=== PATIENT | female | born 1960 | race Caucasian/White ===

== ENCOUNTER 2016-06-06 12:14 | Inpatient (IN) | payer MEDICAID ==
[2016-06-06 12:20] VITALS: BMI 25.7
[2016-06-06] MEDS ORDERED: Sodium Chloride 0.9% 1,000 ML IV STA (12:38)
[2016-06-06 13:11] LABS: BASO % 0.2 % (0.0-2.0); EOS # 0.1 K/uL (0.0-0.7); EOS % 1.2 % (0.0-4.0); HEMATOCRIT 40.8 % (34.0-47.0); LYMPH # 4.1 K/uL (1.0-4.3); LYMPH % 40.5 % (20.0-40.0); MEAN CELL VOLUME 85.6 fL (81.0-99.0); MEAN CORPUSCULAR HEMOGLOBIN 27.9 pg (27.0-31.0); MEAN CORPUSCULAR HGB CONC 32.6 g/dL (33.0-37.0); MONO # 0.8 K/uL (0.0-0.8); MONO % 7.4 % (0.0-10.0); NRBC % 0.1 % (0.0-2.0); RED CELL DISTRIBUTION WIDTH 12.8 % (11.5-14.5); WHITE BLOOD COUNT 10.2 K/uL (4.8-10.8)
[2016-06-06 13:26] LABS: RBC URINE < 1 /hpf (0-3); URINE BILIRUBIN NEGATIVE (NEGATIVE); URINE BLOOD NEGATIVE (NEGATIVE); URINE COLOR Yellow (YELLOW); URINE GLUCOSE (UA) 3+ mg/dL (Normal); URINE KETONE NEGATIVE (NEGATIVE); URINE LEUKOCYTE ESTERASE NEG Leu/uL (Negative); URINE PROTEIN 1+ mg/dL (NEGATIVE); URINE UROBILINOGEN NORMAL mg/dL (0.2-1.0); WBC URINE < 1 /hpf (0-5)
[2016-06-06 13:27] LABS: CHLORIDE 93 mmol/L (98-107); POTASSIUM 3.5 mmol/L (3.6-5.2); SODIUM 138 mmol/L (132-148)
[2016-06-06 13:29] LABS: BILIRUBIN,TOTAL 0.5 mg/dL (0.2-1.3); CARBON DIOXIDE 27 mmol/L (22-30); GFR AFRICAN-AMERICAN > 60
[2016-06-06 13:30] LABS: ALKALINE PHOSPHATASE 85 U/L (38-126); ALT/SGPT 16 U/L (9-52); AST/SGOT 17 U/L (14-36); BLOOD UREA NITROGEN 14 mg/dL (7-17); CALCIUM 9.1 mg/dl (8.6-10.4); GLUCOSE,RANDOM 307 mg/dL (65-105); TOTAL PROTEIN 8.6 g/dL (6.3-8.3)
[2016-06-06] MEDS ORDERED: Piperacillin/Tazobact 3.375 gm 100 ML IV STA (14:46)
[2016-06-06] MEDS ORDERED: Piperacillin/Tazobact 3.375 gm 100 ML IVPB ONE (15:10)
--- NOTE | 2016-06-06 16:28 | C.PDOC ---
History Of Present Illness Patient is a 55 y/o female that presents to the ED for evaluation of right upper eyelid pain and swelling for the last 3 days that is progressively getting worse and since yesterday spread to the periorbital area. Pt also reports heaviness and paresthesia to BL legs, right more than left. Of note, pt walks with a cane. Blood pressure was found to be elevated at Triage. Pt notes taking Metropolol 25 mg, that was prescribed by a ER provider in [place]. Pt denies having a PMD. Otherwise, pt denies any shortness of breath, chest pain , palpitations, headache, weakness, numbness, fever, vision change, or any other associated symptoms at this time. Time Seen by Provider: 06/06/16 12:35 Chief Complaint (Nursing): Eye Problem History Per: Patient History/Exam Limitations: no limitations Onset/Duration Of Symptoms: Days (3) Current Symptoms Are (Timing): Still Present Injury To Eye?: No Quality: "Pain" Associated Symptoms: Pain, Swelling Recent travel outside of the [place]: No Additional History Per: Patient Past Medical History Reviewed: Historical Data, Nursing Documentation, Vital Signs Vital Signs: Last Vital Signs Temp 98.1 F 06/06/16 12:19 Pulse 108 H 06/06/16 12:19 Resp 18 06/06/16 12:19 BP 156/88 H 06/06/16 14:46 Pulse Ox 100 06/06/16 17:11 - Medical History PMH: HTN Family History: States: Unknown Family Hx - Social History Hx Alcohol Use: No Hx Substance Use: No - Immunization History Hx Tetanus Toxoid Vaccination: No Hx Influenza Vaccination: No Hx Pneumococcal Vaccination: No Review Of Systems Except As Marked, All Systems Reviewed And Found Negative. Constitutional: Negative for: Fever, Chills Eyes: Positive for: Pain, Eyelid Inflammation. Negative for: Vision Change, Redness Cardiovascular: Negative for: Chest Pain, Palpitations, Edema, Light Headedness Respiratory: Negative for: Cough, Shortness of Breath Gastrointestinal: Negative for: Nausea, Vomiting, Abdominal Pain Neurological: Negative for: Headache Physical Exam - Physical Exam Appears: Non-toxic, No Acute Distress Skin: Normal Color, Warm, Dry Head: Atraumatic, Normacephalic Eye(s): bilateral: EOMI, Scleral Icterus, right: Eyelid Inflammation, Other ( erythema, and swelling to right upper eyelid, mild swelling to inferior periorbital region, upper eyelid with the inner stye.) Ear(s): Bilateral: Normal Neck: Normal ROM, Supple Chest: Symmetrical Cardiovascular: Rhythm Regular Respiratory: Normal Breath Sounds, No Rales, No Rhonchi, No Wheezing Back: Paraspinal Tenderness (lumbar) Extremity: Normal ROM, Calf Tenderness (bilateral), Capillary Refill (< 2 sec.) , No Deformity, No Swelling Extremity: Bilateral: Atraumatic, Normal Color And Temperature Pulses: Left Dorsalis Pedis: Normal, Right Dorsalis Pedis: Normal Neurological/Psych: Oriented x3, Normal Speech, Normal Cognition, Normal Motor, Normal Sensation (decreased sensation in b/l feet, ) ED Course And Treatment - Laboratory Results Result Diagrams: 06/06/16 13:08 06/06/16 13:08 O2 Sat by Pulse Oximetry: 100 (on RA) Pulse Ox Interpretation: Normal - Other Rad LS spine x-ray X-Ray: Viewed By Me, Read By Radiologist Interpretation: FINDINGS: BONES: Normal alignment. No listhesis. No fracture. Mild dextroscoliosis. DISC SPACES: Unremarkable. OTHER FINDINGS: None. IMPRESSION: No fracture/ dislocation. Mild dextroscoliosis. Progress Note: Labs, venous duplex scan, LS spine x-ray ordered and reviewed. Patient was treated with IV fluids, Labetalol PO, and Zosyn IV. On reassessment , blood pressure decreased. Duplex was negative for DVT. Blood work was significant for elevated blood Glucose level which was new for the patient. Patient is resting comfortably, no significant distress. Case was d/w who accepted patient to his service. Disposition - Disposition Disposition: HOSPITALIZED Disposition Time: 16:20 Condition: FAIR - Clinical Impression Clinical Impression: Diabetes mellitus, new onset, Uncontrolled hypertension, Periorbital cellulitis of right eye - PA / RESOLUTION EXPERT / Resident Statement MD/DO has reviewed & agrees with the documentation as recorded. - Scribe Statement The provider has reviewed the documentation as recorded by the Mo Jean All medical record entries made by the Fernandoibsonia were at my direction and personally dictated by me. I have reviewed the chart and agree that the record accurately reflects my personal performance of the history, physical exam, medical decision making, and the department course for this patient. I have also personally directed, reviewed, and agree with the discharge instructions and disposition. Decision To Admit - Pt Status Changed To: Hospital Disposition Of: Inpatient - Admit Certification Admit to Inpatient:: After my assessment, the patient will require hospitalization for at least two midnights. This is because of the severity of symptoms shown, intensity of services needed, and/or the medical risk in this patient being treated as an outpatient. - InPatient: Physician Admission Certification: I certify that this patient requires 2 or more midnights of care for the following reason:: Pt will need IV Abx for more than 2 days. - . Bed Request Type: Regular Admitting Physician: Scotty Christina Patient Diagnosis: Diabetes mellitus, new onset, Uncontrolled hypertension, Periorbital cellulitis of right eye
--- NOTE | 2016-06-06 16:45 | RAD ---
PROCEDURE: Radiographs of the Lumbar Spine. HISTORY: LE pain COMPARISON: No prior. FINDINGS: BONES: Normal alignment. No listhesis. No fracture. Mild dextroscoliosis. DISC SPACES: Unremarkable. OTHER FINDINGS: None. IMPRESSION: No fracture/ dislocation. Mild dextroscoliosis.
[2016-06-06] MEDS ORDERED: Oxycodone/Acetaminophen 5/325 mg Tab PO PRN (17:02)
--- NOTE | 2016-06-06 17:16 | CP.PCM.HP ---
History of Present Illness - History of Present Illness History of Present Illness: 55 year old admitted with uncontrolled DM, HTN, Sty with cellulitis Present on Admission - Present on Admission Any Indicators Present on Admission: No Review of Systems - Constitutional Constitutional: Weakness - EENT Eyes: absent: Discharge Ears: absent: Ear Discharge Nose/Mouth/Throat: absent: Epistaxis - Cardiovascular Cardiovascular: Chest Pain. absent: Acrocyanosis, Diaphoresis, Palpitations, Syncope - Respiratory Respiratory: absent: Cough, Dyspnea, Hemoptysis - Gastrointestinal Gastrointestinal: absent: Abdominal Pain, Diarrhea, Hematochezia, Vomiting - Genitourinary Genitourinary: Urinary Frequency - Reproductive: Female Reproductive:Female: Post Menopausal Past Patient History - Past Social History Smoking Status: Never Smoked - CARDIAC Hx Hypertension: Yes - PSYCHIATRIC Hx Substance Use: No Meds Allergies/Adverse Reactions: Allergies Allergy/AdvReac Type Severity Reaction Status Date / Time No Known Allergies Allergy Unverified 06/06/16 12:19 Physical Exam - Constitutional Appears: Non-toxic - Head Exam Head Exam: ATRAUMATIC - Eye Exam Eye Exam: EOMI, Periorbital swelling Additional comments: sty R upper - ENT Exam ENT Exam: Mucous Membranes Moist - Neck Exam Neck exam: Negative for: Lymphadenopathy, Thyromegaly - Respiratory Exam Respiratory Exam: Clear to Auscultation Bilateral. absent: Rales - Cardiovascular Exam Cardiovascular Exam: REGULAR RHYTHM - GI/Abdominal Exam GI & Abdominal Exam: Normal Bowel Sounds. absent: Mass, Organomegaly - Rectal Exam Rectal Exam: Deferred - Extremities Exam Extremities exam: Positive for: normal capillary refill. Negative for: calf tenderness - Neurological Exam Neurological exam: Alert, Oriented x3 - Psychiatric Exam Psychiatric exam: Normal Mood - Skin Skin Exam: Dry Results - Vital Signs Recent Vital Signs: Last Vital Signs Temp 98.1 F 06/06/16 12:19 Pulse 108 H 06/06/16 12:19 Resp 18 06/06/16 12:19 BP 156/88 H 06/06/16 14:46 Pulse Ox 100 06/06/16 17:11 - Labs Result Diagrams: 06/07/16 06:08 06/07/16 06:08 Assessment & Plan (1) Infection of orbit Status: Acute (2) Diabetes 1.5, managed as type 2 Status: Acute (3) Hypertension Status: Acute Decision To Admit - Pt Status Changed To: Hospital Disposition Of: Inpatient - Admit Certification Admit to Inpatient:: After my assessment, the patient will require hospitalization for at least two midnights. This is because of the severity of symptoms shown, intensity of services needed, and/or the medical risk in this patient being treated as an outpatient. - InPatient: Physician Admission Certification:: yes - . Bed Request Type: Regular
[2016-06-06] MEDS ORDERED: Piperacill/Tazo 3.375gm in Dex 50 ML IVPB SCH ×2 (17:30→21:30)
[2016-06-06] MEDS ORDERED: Iodixanol 320 MG/ML 100 ML BOTTLE IV ONE (18:13)
--- NOTE | 2016-06-06 19:15 | CT ---
EXAM: CT Maxillofacial With Intravenous Contrast. CLINICAL HISTORY: 55 years old, female; Pain; Eye pain; Right; Additional info: Infection TECHNIQUE: Axial computed tomography images of the face with intravenous contrast. This CT exam was performed using one or more of the following dose reduction techniques: automated exposure control, adjustment of the mA and/or kV according to patient size, and/or use of iterative reconstruction technique. Coronal and sagittal reformatted images were created and reviewed. CONTRAST: 100 mL of [id number] administered intravenously. EXAM DATE/TIME: 06/06/2016 5:12 PM COMPARISON: There are no prior studies for comparison. FINDINGS: Orbits: There is right periorbital soft tissue swelling. There is edema in the right cheek inferior to the orbit. Right globe is intact. Retrobulbar structures are unremarkable. There is no right orbital cellulitis. Left orbital contents are unremarkable. Sinuses: There is no acute sinusitis. Bony structures: Facial bones are intact. There are degenerative changes in the visualized cervical spine. Artifact:Streak artifact from dental fillings degrades image quality. Brain: No acute abnormalities are seen in visualized portion of the brain. Ears and mastoids: Middle ears and mastoids are unremarkable Vascular: Vascular structures are normal in course and caliber. Deep soft tissues: There are no facial masses. Airway: Airway is unremarkable. IMPRESSION: Right izzy-orbital and cheek soft tissue swelling suggesting preseptal cellulitis/facial cellulitis, no orbital cellulitis Additional findings as described above.
[2016-06-06] MEDS: (Novolin R) Insulin Human Regular 100 units/ml vial SC SCH (22:26)
[2016-06-07] MEDS: Piperacill/Tazo 3.375gm in Dex 50 ML IVPB SCH ×5 (00:16→23:59)
[2016-06-07] MEDS: Tobramycin 0.3% OPHT SOLN OU SCH ×7 (01:15→21:47)
[2016-06-07 01:36] VITALS: RESP 20
[2016-06-07 06:18] LABS: BASO % 0.3 % (0.0-2.0); EOS # 0.1 K/uL (0.0-0.7); EOS % 1.5 % (0.0-4.0); HEMATOCRIT 36.6 % (34.0-47.0); LYMPH # 2.6 K/uL (1.0-4.3); LYMPH % 30.8 % (20.0-40.0); MEAN CELL VOLUME 85.5 fL (81.0-99.0); MEAN CORPUSCULAR HEMOGLOBIN 28.5 pg (27.0-31.0); MEAN CORPUSCULAR HGB CONC 33.3 g/dL (33.0-37.0); MEAN PLATELET VOLUME 8.2 fL (7.2-11.7); MONO # 0.7 K/uL (0.0-0.8); MONO % 8.3 % (0.0-10.0); WHITE BLOOD COUNT 8.3 K/uL (4.8-10.8)
[2016-06-07 06:26] LABS: CHLORIDE 98 mmol/L (98-107)
[2016-06-07 06:27] LABS: SODIUM 140 mmol/L (132-148)
[2016-06-07 06:29] LABS: ALB/GLOB RATIO 1.2 (1.0-2.1); ALKALINE PHOSPHATASE 69 U/L (38-126); AST/SGOT 17 U/L (14-36); BILIRUBIN,TOTAL 0.9 mg/dL (0.2-1.3); BLOOD UREA NITROGEN 17 mg/dL (7-17); CARBON DIOXIDE 27 mmol/L (22-30); CHOLESTEROL 211 mg/dL (0-199); GFR AFRICAN-AMERICAN > 60; TOTAL PROTEIN 7.2 g/dL (6.3-8.3)
[2016-06-07 06:30] LABS: ALT/SGPT 21 U/L (9-52); CALCIUM 8.8 mg/dl (8.6-10.4); GLUCOSE,RANDOM 207 mg/dL (65-105)
[2016-06-07] MEDS: (Novolin R) Insulin Human Regular 100 units/ml vial SC SCH ×4 (08:46→21:42)
[2016-06-07] MEDS: Metoprolol Succinate 25 mg XL Tab PO SCH (09:37)
[2016-06-07] MEDS: Enoxaparin 40 mg Syringe SC SCH (09:37)
--- NOTE | 2016-06-07 23:57 | CP.PCM.PN ---
Subjective - Date & Time of Evaluation Date of Evaluation: 06/07/16 Time of Evaluation: 14:00 - Subjective Subjective: improved clinically, neg culture so far, f/u with opth Objective - Vital Signs/Intake and Output Vital Signs (last 24 hours): Temp Pulse Resp BP Pulse Ox 98.3 F 100 H 20 131/83 100 06/07/16 17:00 06/07/16 17:00 06/07/16 17:00 06/07/16 17:00 06/07/16 17:00 Intake and Output: 06/07/16 06/08/16 18:59 06:59 Intake Total 500 260 Output Total 1 Balance 500 259 - Medications Medications: Current Medications Acetaminophen (Tylenol 325mg Tab) 650 mg PO Q6 PRN PRN Reason: Fever >100.4 F Docusate Sodium (Colace) 100 mg PO BID [facility] Last Admin: 06/07/16 18:04 Dose: 100 mg Enoxaparin Sodium (Lovenox) 40 mg SC DAILY [facility] Last Admin: 06/07/16 09:37 Dose: 40 mg Piperacillin Sod/Tazobactam Sod (Zosyn 3.375 Gm Iv Premix) 50 mls @ 100 mls/hr IVPB Q6H [facility] Last Admin: 06/07/16 18:05 Dose: 100 mls/hr Insulin Human Regular (Novolin R) 0 unit SC ACHS [facility] PRN Reason: Protocol Last Admin: 06/07/16 21:42 Dose: Not Given Lisinopril (Zestril) 20 mg PO DAILY [facility] Last Admin: 06/07/16 09:37 Dose: 20 mg Metformin HCl (Glucophage) 500 mg PO BIDCC [facility] Last Admin: 06/07/16 17:22 Dose: Not Given Metoprolol Succinate (Toprol Xl) 25 mg PO DAILY [facility] Last Admin: 06/07/16 09:37 Dose: 25 mg Ondansetron HCl (Zofran Inj) 4 mg IVP Q6 PRN PRN Reason: Nausea/Vomiting Oxycodone/Acetaminophen (Percocet 5/325 Mg Tab) 1 tab PO Q4 PRN PRN Reason: Pain, moderate (4-7) Stop: 06/09/16 17:03 Sucralfate (Carafate Tab) 1 gm PO BID [facility] Last Admin: 06/07/16 18:04 Dose: 1 gm Tobramycin Sulfate (Tobrex 0.3% Ophth Soln) 1 drop OU Q4H [facility] Last Admin: 06/07/16 21:47 Dose: 1 drop - Labs Labs: 06/07/16 06:08 06/07/16 06:08 PT 11.7 SECONDS (9.7-12.2) 06/06/16 13:08 INR 1.0 06/06/16 13:08 APTT 29 SECONDS (21-34) 06/06/16 13:08 - Constitutional Appears: Non-toxic - Head Exam Head Exam: ATRAUMATIC - Eye Exam Eye Exam: EOMI - ENT Exam ENT Exam: Mucous Membranes Moist - Neck Exam Neck Exam: absent: Lymphadenopathy, Thyromegaly - Respiratory Exam Respiratory Exam: Clear to Ausculation Bilateral. absent: Rales - Cardiovascular Exam Cardiovascular Exam: REGULAR RHYTHM. absent: Murmur - GI/Abdominal Exam GI & Abdominal Exam: Normal Bowel Sounds. absent: Organomegaly - Rectal Exam Rectal Exam: Deferred - Extremities Exam Extremities Exam: Normal Capillary Refill. absent: Calf Tenderness - Neurological Exam Neurological Exam: Alert, Oriented x3 - Psychiatric Exam Psychiatric exam: Normal Mood - Skin Skin Exam: Dry Assessment and Plan (1) Infection of orbit Status: Acute (2) Diabetes 1.5, managed as type 2 Status: Acute (3) Hypertension Status: Acute
[2016-06-08] MEDS: Tobramycin 0.3% OPHT SOLN OU SCH ×4 (00:15→12:19)
[2016-06-08] MEDS: Piperacill/Tazo 3.375gm in Dex 50 ML IVPB SCH ×2 (05:48→12:31)
[2016-06-08] MEDS: (Novolin R) Insulin Human Regular 100 units/ml vial SC SCH ×2 (08:20→12:17)
[2016-06-08] MEDS: Metoprolol Succinate 25 mg XL Tab PO SCH (10:35)
[2016-06-08] MEDS: Enoxaparin 40 mg Syringe SC SCH (10:35)
--- NOTE | 2016-06-08 12:06 | CP.PCM.PN ---
Subjective - Date & Time of Evaluation Date of Evaluation: 06/08/16 Time of Evaluation: 12:00 - Subjective Subjective: Hemoglobin A1c 11 lipids mildly elevated, improved clinically, follow-up with ophthalmology Objective - Vital Signs/Intake and Output Vital Signs (last 24 hours): Temp Pulse Resp BP Pulse Ox 97.8 F 89 20 149/90 98 06/08/16 08:20 06/08/16 08:20 06/08/16 08:20 06/08/16 08:20 06/08/16 08:20 Intake and Output: 06/08/16 06/08/16 06:59 18:59 Intake Total 260 240 Output Total 1 Balance 259 240 - Medications Medications: Current Medications Acetaminophen (Tylenol 325mg Tab) 650 mg PO Q6 PRN PRN Reason: Fever >100.4 F Docusate Sodium (Colace) 100 mg PO BID [facility] Last Admin: 06/08/16 10:35 Dose: 100 mg Enoxaparin Sodium (Lovenox) 40 mg SC DAILY [facility] Last Admin: 06/08/16 10:35 Dose: 40 mg Piperacillin Sod/Tazobactam Sod (Zosyn 3.375 Gm Iv Premix) 50 mls @ 100 mls/hr IVPB Q6H [facility] Last Admin: 06/08/16 05:48 Dose: 100 mls/hr Insulin Human Regular (Novolin R) 0 unit SC ACHS [facility] PRN Reason: Protocol Last Admin: 06/08/16 08:20 Dose: 2 unit Lisinopril (Zestril) 20 mg PO DAILY [facility] Last Admin: 06/08/16 10:35 Dose: 20 mg [facility] Last Admin: 06/07/16 17:22 Dose: Not Given Metoprolol Succinate (Toprol Xl) 25 mg PO DAILY [facility] Last Admin: 06/08/16 10:35 Dose: 25 mg Ondansetron HCl (Zofran Inj) 4 mg IVP Q6 PRN PRN Reason: Nausea/Vomiting Oxycodone/Acetaminophen (Percocet 5/325 Mg Tab) 1 tab PO Q4 PRN PRN Reason: Pain, moderate (4-7) Stop: 06/09/16 17:03 Sucralfate (Carafate Tab) 1 gm PO BID [facility] Last Admin: 06/08/16 10:35 Dose: 1 gm Tobramycin Sulfate (Tobrex 0.3% Ophth Soln) 1 drop OU Q4H [facility] Last Admin: 06/08/16 10:37 Dose: 1 drop - Labs Labs: 06/07/16 06:08 06/07/16 06:08 PT 11.7 SECONDS (9.7-12.2) 06/06/16 13:08 INR 1.0 06/06/16 13:08 APTT 29 SECONDS (21-34) 06/06/16 13:08 - Constitutional Appears: Non-toxic - Head Exam Head Exam: ATRAUMATIC - Eye Exam Eye Exam: EOMI - ENT Exam ENT Exam: Mucous Membranes Moist - Neck Exam Neck Exam: absent: Lymphadenopathy, Thyromegaly - Respiratory Exam Respiratory Exam: Clear to Ausculation Bilateral. absent: Rales - Cardiovascular Exam Cardiovascular Exam: REGULAR RHYTHM, Murmur - GI/Abdominal Exam GI & Abdominal Exam: Normal Bowel Sounds. absent: Organomegaly - Rectal Exam Rectal Exam: Deferred - Extremities Exam Extremities Exam: Normal Capillary Refill. absent: Calf Tenderness - Neurological Exam Neurological Exam: Alert, Oriented x3 - Psychiatric Exam Psychiatric exam: Normal Mood - Skin Skin Exam: Dry Assessment and Plan (1) Infection of orbit Status: Acute (2) Diabetes 1.5, managed as type 2 Status: Acute (3) Hypertension Status: Acute
--- NOTE | 2016-06-08 16:38 | VASCLAB ---
PROCEDURE: Lower Extremity Venous Duplex Exam. HISTORY: LE heaviness/pain suspected DVT PRIORS: None. TECHNIQUE: Bilateral common femoral, femoral, popliteal and posterior tibial, peroneal and great saphenous veins were evaluated. Flow was assessed with color Doppler, compressibility, assessment of phasic flow and augmentation response. Report prepared by John Renteria, RVT FINDINGS: RIGHT: 1. Common Femoral Vein: 1.1. Compressibility - Fully compressible: Thrombus - None : Flow - Phasic: Augmentation -Normal: Reflux - None. 2. Femoral Vein: 2.1. Compressibility - Fully compressible: Thrombus - None : Flow - Phasic: Augmentation -Normal: Reflux - None. 3. Popliteal Vein: 3.1. Compressibility - Fully compressible: Thrombus - None : Flow - Phasic: Augmentation -Normal: Reflux - None. 4. Posterior Tibial Vein: 4.1. Compressibility - Fully compressible: Thrombus - None: Flow - Phasic: Augmentation -Normal: Reflux - None. 5. Peroneal Vein: 5.1. Compressibility - Fully compressible: Thrombus - None: Flow - Phasic: Augmentation -Normal: Reflux - None. 6. Great Saphenous Vein: 6.1. Compressibility - Fully compressible: Thrombus - None: Flow - Phasic: Augmentation - Normal: Reflux - None. LEFT: 1. Common Femoral Vein: 1.1. Compressibility - Fully compressible: Thrombus - None: Flow - Phasic: Augmentation -Normal: Reflux - None. 2. Femoral Vein: 2.1. Compressibility - Fully compressible: Thrombus - None: Flow - Phasic: Augmentation -Normal: Reflux - None. 3. Popliteal Vein: 3.1. Compressibility - Fully compressible: Thrombus - None : Flow - Phasic: Augmentation -Normal: Reflux - None. 4. Posterior Tibial Vein: 4.1. Compressibility - Fully compressible: Thrombus - None: Flow - Phasic: Augmentation -Normal: Reflux - None. 5. Peroneal Vein: 5.1. Compressibility - Fully compressible: Thrombus - None: Flow - Phasic: Augmentation -Normal: Reflux - None. 6. Great Saphenous Vein: 6.1. Compressibility - Fully compressible: Thrombus - None: Flow - Phasic: Augmentation - Normal: Reflux - None. OTHER FINDINGS: Right: None significant. Left: None significant. IMPRESSION: Right: No evidence of deep or superficial vein thrombosis of the right lower extremity. Left: No evidence of deep or superficial vein thrombosis of the left lower extremity.
[2016-06-08 17:02] VITALS: BP 132/81; PULSE 97; TEMP 98; O2SAT 99
--- NOTE | 2016-06-08 19:09 | CP.PCM.DIS ---
Provider - Provider Date of Admission: 06/06/16 16:20 Attending physician: Scotty Christina MD Time Spent in preparation of Discharge (in minutes): 20 Diagnosis - Discharge Diagnosis (1) Infection of orbit Status: Acute (2) Diabetes 1.5, managed as type 2 Status: Acute (3) Hypertension Status: Acute Hospital Course - Lab Results Lab Results: Micro Results 06/06/16 20:26 Blood Blood Culture - Preliminary NO GROWTH AFTER 24 HOURS 06/06/16 20:26 Blood Blood Culture - Preliminary NO GROWTH AFTER 24 HOURS Most Recent Lab Values WBC 8.3 K/uL (4.8-10.8) 06/07/16 06:08 RBC 4.28 Mil/uL (3.80-5.20) 06/07/16 06:08 Hgb 12.2 g/dL (11.0-16.0) 06/07/16 06:08 Hct 36.6 % (34.0-47.0) 06/07/16 06:08 MCV 85.5 fL (81.0-99.0) 06/07/16 06:08 MCH 28.5 pg (27.0-31.0) 06/07/16 06:08 MCHC 33.3 g/dL (33.0-37.0) 06/07/16 06:08 RDW 13.0 % (11.5-14.5) 06/07/16 06:08 Plt Count 306 K/uL (130-400) 06/07/16 06:08 MPV 8.2 fL (7.2-11.7) 06/07/16 06:08 Neut % (Auto) 59.1 % (50.0-75.0) 06/07/16 06:08 Lymph % (Auto) 30.8 % (20.0-40.0) 06/07/16 06:08 Gage % (Auto) 8.3 % (0.0-10.0) 06/07/16 06:08 Eos % (Auto) 1.5 % (0.0-4.0) 06/07/16 06:08 Baso % (Auto) 0.3 % (0.0-2.0) 06/07/16 06:08 Neut # 4.9 K/uL (1.8-7.0) 06/07/16 06:08 Lymph # 2.6 K/uL (1.0-4.3) 06/07/16 06:08 Gage # 0.7 K/uL (0.0-0.8) 06/07/16 06:08 Eos # 0.1 K/uL (0.0-0.7) 06/07/16 06:08 Baso # 0.0 K/uL (0.0-0.2) 06/07/16 06:08 PT 11.7 SECONDS (9.7-12.2) 06/06/16 13:08 INR 1.0 06/06/16 13:08 APTT 29 SECONDS (21-34) 06/06/16 13:08 Sodium 140 mmol/L (132-148) 06/07/16 06:08 Potassium 4.0 mmol/L (3.6-5.2) 06/07/16 06:08 Chloride 98 mmol/L (98-107) 06/07/16 06:08 Carbon Dioxide 27 mmol/L (22-30) 06/07/16 06:08 Anion Gap 19 (10-20) 06/07/16 06:08 BUN 17 mg/dL (7-17) 06/07/16 06:08 Creatinine 0.7 MG/DL (0.7-1.2) 06/07/16 06:08 Est GFR ( Amer) > 60 06/07/16 06:08 Est GFR (Non-Af Amer) > 60 06/07/16 06:08 POC Glucose (mg/dL) 169 mg/dL (65-110) H 06/08/16 16:44 Random Glucose 207 mg/dL (65-105) H 06/07/16 06:08 Hemoglobin A1c 11.8 % (4.2-6.5) H 06/07/16 06:08 Calcium 8.8 mg/dl (8.6-10.4) 06/07/16 06:08 Total Bilirubin 0.9 mg/dL (0.2-1.3) 06/07/16 06:08 AST 17 U/L (14-36) 06/07/16 06:08 ALT 21 U/L (9-52) 06/07/16 06:08 Alkaline Phosphatase 69 U/L (38-126) 06/07/16 06:08 Total Protein 7.2 g/dL (6.3-8.3) 06/07/16 06:08 Albumin 3.9 g/dL (3.5-5.0) 06/07/16 06:08 Globulin 3.3 gm/dL (2.2-3.9) 06/07/16 06:08 Albumin/Globulin Ratio 1.2 (1.0-2.1) 06/07/16 06:08 Triglycerides 151 mg/dL (0-149) H 06/07/16 06:08 Cholesterol 211 mg/dL (0-199) H 06/07/16 06:08 LDL Cholesterol Direct 116 mg/dL (0-129) 06/07/16 06:08 HDL Cholesterol 32 mg/dL (30-70) 06/07/16 06:08 Urine Color Yellow (YELLOW) 06/06/16 13:08 Urine Clarity Clear (Clear) 06/06/16 13:08 Urine pH 6.0 (5.0-8.0) 06/06/16 13:08 Ur Specific [place] 1.017 (1.003-1.030) 06/06/16 13:08 Urine Protein 1+ mg/dL (NEGATIVE) H 06/06/16 13:08 Urine Glucose (UA) 3+ mg/dL (Normal) H 06/06/16 13:08 Urine Ketones Negative mg/dL (NEGATIVE) 06/06/16 13:08 Urine Blood Negative (NEGATIVE) 06/06/16 13:08 Urine Nitrate Negative (NEGATIVE) 06/06/16 13:08 Urine Bilirubin Negative (NEGATIVE) 06/06/16 13:08 Urine Urobilinogen Normal mg/dL (0.2-1.0) 06/06/16 13:08 Ur Leukocyte Esterase Neg Ivis/uL (Negative) 06/06/16 13:08 Urine WBC (Auto) < 1 /hpf (0-5) 06/06/16 13:08 Urine RBC (Auto) < 1 /hpf (0-3) 06/06/16 13:08 Ur Squamous Epith Cells 5 /hpf (0-5) 06/06/16 13:08 - Hospital Course Hospital Course: admitted with uncontrolled DM, a1c 11, improved with metformin, Sty R eye seen by opth did well f/u as outpt Discharge Exam - Head Exam Head Exam: ATRAUMATIC - Eye Exam Eye Exam: EOMI - ENT Exam ENT Exam: Mucous Membranes Moist - Neck Exam Neck exam: Full Rom - Respiratory Exam Respiratory Exam: Clear to PA & Lateral. absent: Rales - Cardiovascular Exam Cardiovascular Exam: REGULAR RHYTHM. absent: Systolic Murmur - GI/Abdominal Exam GI & Abdominal Exam: Normal Bowel Sounds. absent: Organomegaly - Rectal Exam Rectal Exam: Deferred - Extremities Exam Extremities exam: normal capillary refill - Neurological Exam Neurological exam: Alert, Oriented x3 - Psychiatric Exam Psychiatric exam: Normal Mood - Skin Skin Exam: Dry Discharge Plan - Discharge Medications Prescriptions: Omeprazole 40 mg PO DAILY #30 capsule. Lisinopril [Prinivil] 5 mg PO DAILY #30 tab metFORMIN [glucOPHAGE] 500 mg PO BIDCC #60 tab - Follow Up Plan Condition: FAIR Disposition: HOME/ ROUTINE Instructions: Lisinopril (By mouth), Omeprazole (By mouth), Metformin (By mouth ), How to Check Your Blood Sugar (DC), Diabetic Foot Care (DC), Diabetic Hypoglycemia (DC), Meal Planning with Diabetes Exchanges (DC), Periorbital Cellulitis in Adults (DC) Referrals: Scotty Christina MD [Staff Provider] -
== END 2016-06-08 19:00 | disposition home or self-care (01) | DRG 294 ==
LOC: C.ER 12:14 → C.9E 16:20 → C.3T 17:20
PROVIDERS: ADMIT Internal Medicine Cardiovascular Disease; ATTEND Internal Medicine Cardiovascular Disease
DX: E11.628 Type 2 diabetes mellitus with other skin complications (principal); L03.213 Periorbital cellulitis; I10 Essential (primary) hypertension; E11.65 Type 2 diabetes mellitus with hyperglycemia; R20.9 Unspecified disturbances of skin sensation

== ENCOUNTER 2016-06-15 00:52 | Emergency (ER) | payer MEDICAID ==
[2016-06-15 00:52] VITALS: BMI 25.7
[2016-06-15 01:06] VITALS: TEMP 97.7
[2016-06-15] MEDS ORDERED: Sodium Chloride 0.9% 1,000 ML IV ONE (01:19)
--- NOTE | 2016-06-15 01:21 | C.PDOC ---
History Of Present Illness Patient is a 55 year old female who presents to the ER with a complaint of an aching left upper quadrant pain and shortness of breath. Patient appear agitated. Patient denies any nausea or vomiting. Chief Complaint (Nursing): Shortness Of Breath History Per: Patient History/Exam Limitations: no limitations Onset/Duration Of Symptoms: Hrs Current Symptoms Are (Timing): Still Present Quality: Aching (Left upper quadrant) Associated Symptoms: denies: Fever, Chills Past Medical History Reviewed: Historical Data, Nursing Documentation, Vital Signs Vital Signs: Last Vital Signs Temp 97.7 F 06/15/16 01:03 Pulse 92 H 06/15/16 03:50 Resp 20 06/15/16 03:50 BP 142/88 06/15/16 03:50 Pulse Ox 97 06/15/16 03:50 - Medical History PMH: HTN Family History: States: Unknown Family Hx - Social History Hx Alcohol Use: No Hx Substance Use: No - Immunization History Hx Tetanus Toxoid Vaccination: No Hx Influenza Vaccination: No Hx Pneumococcal Vaccination: No Review Of Systems Except As Marked, All Systems Reviewed And Found Negative. Constitutional: Negative for: Fever, Chills Cardiovascular: Negative for: Chest Pain, Palpitations Respiratory: Positive for: Shortness of Breath. Negative for: Cough Gastrointestinal: Positive for: Abdominal Pain (Left upper quadrant). Negative for: Nausea, Vomiting, Diarrhea Physical Exam - Physical Exam Appears: Non-toxic, Agitated Skin: Normal Color, Warm, Dry Head: Atraumatic, Normacephalic Throat: Normal Neck: Normal, Normal ROM Chest: Symmetrical Cardiovascular: Rhythm Regular Respiratory: Normal Breath Sounds, No Rales, No Rhonchi, No Wheezing Gastrointestinal/Abdominal: Soft, Tenderness (Left upper quadrant ) Neurological/Psych: Oriented x3, Normal Speech, Normal Cognition ED Course And Treatment - Laboratory Results Result Diagrams: 06/15/16 01:40 06/15/16 01:40 ECG: Interpreted By Me ECG Rhythm: Sinus Tachycardia, Nonspecific Changes ECG Interpretation: No Acute Changes, Abnormal Interpretation Of ECG: Sinus tachycardia, nonspc, st-t changes, abnormal tracings Rate From EC O2 Sat by Pulse Oximetry: 100 (Room air) Pulse Ox Interpretation: Normal Progress Note: CT of the abdomen/pelvis with PO and IV contrast, blood work, chest x-ray, and urinalysis ordered. IV fluids and xanax administered. Disposition Counseled Patient/Family Regarding: Diagnosis - Disposition Referrals: at [facility] [Outside] Disposition: HOME/ ROUTINE Disposition Time: 04:06 Condition: STABLE Prescriptions: traMADol/Acetaminophen [Ultracet 325 MG-37.5 MG] 1 tab PO Q6 #10 tab Instructions: Abdominal Pain (ED), Diabetes Mellitus Type 2 in Adults (ED) Forms: Gen Discharge Inst Latvian Print Language: MAURITANIAN - Clinical Impression Clinical Impression: Abdominal pain, Diabetes mellitus - Scribe Statement The provider has reviewed the documentation as recorded by the Scribsonai Hazel All medical record entries made by the Fernandoibsonia were at my direction and personally dictated by me. I have reviewed the chart and agree that the record accurately reflects my personal performance of the history, physical exam, medical decision making, and the department course for this patient. I have also personally directed, reviewed, and agree with the discharge instructions and disposition.
[2016-06-15] MEDS ORDERED: Iohexol 240 (50 ml) ONE (01:29)
[2016-06-15] MEDS ORDERED: Iohexol 240 (50 ml) PO ONE (01:42)
[2016-06-15 01:43] LABS: BASO # 0.1 K/uL (0.0-0.2); BASO % 0.6 % (0.0-2.0); EOS # 0.1 K/uL (0.0-0.7); EOS % 1.1 % (0.0-4.0); HEMATOCRIT 38.5 % (34.0-47.0); LYMPH # 3.8 K/uL (1.0-4.3); LYMPH % 37.7 % (20.0-40.0); MEAN CELL VOLUME 85.4 fL (81.0-99.0); MEAN CORPUSCULAR HEMOGLOBIN 27.8 pg (27.0-31.0); MEAN CORPUSCULAR HGB CONC 32.5 g/dL (33.0-37.0); MEAN PLATELET VOLUME 8.4 fL (7.2-11.7); MONO # 0.8 K/uL (0.0-0.8); NRBC % 0.1 % (0.0-2.0); RED CELL DISTRIBUTION WIDTH 12.9 % (11.5-14.5); WHITE BLOOD COUNT 10.1 K/uL (4.8-10.8)
[2016-06-15] MEDS ORDERED: Sodium Chloride 0.9% 1,000 ML ONE (01:47)
[2016-06-15 01:52] LABS: CHLORIDE 100 mmol/L (98-107); POTASSIUM 3.9 mmol/L (3.6-5.2); SODIUM 140 mmol/L (132-148)
[2016-06-15 01:54] LABS: AST/SGOT 15 U/L (14-36); BILIRUBIN,TOTAL 0.5 mg/dL (0.2-1.3); CARBON DIOXIDE 23 mmol/L (22-30); GFR AFRICAN-AMERICAN > 60
[2016-06-15 01:55] LABS: ALKALINE PHOSPHATASE 66 U/L (38-126); ALT/SGPT 27 U/L (9-52); BLOOD UREA NITROGEN 14 mg/dL (7-17); CALCIUM 9.7 mg/dl (8.6-10.4); GLUCOSE,RANDOM 180 mg/dL (65-105); TOTAL PROTEIN 8.6 g/dL (6.3-8.3)
[2016-06-15] MEDS ORDERED: Iodixanol 320 MG/ML 100 ML BOTTLE IV ONE (03:07)
--- NOTE | 2016-06-15 03:59 | CT ---
EXAM: CT Abdomen and Pelvis With Intravenous Contrast CLINICAL HISTORY: 55 years old, female; Pain; Abdominal pain; Epigastric; Additional info: Abd pain TECHNIQUE: Axial computed tomography images of the abdomen and pelvis with intravenous contrast. This CT exam was performed using one or more of the following dose reduction techniques: automated exposure control, adjustment of the mA and/or kV according to patient size, and/or use of iterative reconstruction technique. Coronal and sagittal reformatted images were created and reviewed. CONTRAST: 100 mL of [id number] administered intravenously. COMPARISON: No relevant prior studies available. FINDINGS: Lower thorax: No acute findings. ABDOMEN: Liver: Too small to characterize lesion. Gallbladder and bile ducts: No calcified stones. No ductal dilation. Pancreas: No ductal dilation. No mass. Spleen: No splenomegaly. Adrenals: No mass. Kidneys and ureters: No mass. No hydronephrosis. Stomach and bowel: No definite mural thickening. No obstruction. Appendix: Normal caliber. No definite inflammation. PELVIS: Bladder: Unremarkable. Reproductive: Unremarkable as visualized. ABDOMEN and PELVIS: Intraperitoneal space: No significant fluid collection. No free air. Bones/joints: Degenerative changes of spine. Bone island. No acute fracture. Soft tissues: Small ventral hernia containing fat/mesenteric vessels. Vasculature: Minimal atherosclerotic disease of aorta. Lymph nodes: No pathologically enlarged lymph nodes. IMPRESSION: 1. No definite acute intraabdominal abnormality. 2. Incidental/non-acute findings are described above.
[2016-06-15 04:05] VITALS: BP 142/88; PULSE 92; RESP 20
[2016-06-15 04:09] VITALS: O2SAT 100
[2016-06-15 04:12] LABS: RBC URINE < 1 /hpf (0-3); URINE BACTERIA RARE (<OCC); URINE BILIRUBIN NEGATIVE (NEGATIVE); URINE BLOOD NEGATIVE (NEGATIVE); URINE COLOR Straw (YELLOW); URINE GLUCOSE (UA) NORMAL (Normal); URINE KETONE NEGATIVE (NEGATIVE); URINE LEUKOCYTE ESTERASE NEG Leu/uL (Negative); URINE PROTEIN NEGATIVE (NEGATIVE); URINE UROBILINOGEN NORMAL mg/dL (0.2-1.0); WBC URINE 1 /hpf (0-5)
--- NOTE | 2016-06-15 08:53 | RAD ---
HISTORY: Abdominal pain COMPARISON: No prior. TECHNIQUE: Chest PA and lateral FINDINGS: LUNGS: No focal infiltrate or effusion. PLEURA: No significant pleural effusion identified. No pneumothorax apparent. CARDIOVASCULAR: Normal. OSSEOUS STRUCTURES: Degenerative changes in the spine with paravertebral osteophytes. VISUALIZED UPPER ABDOMEN: Normal. OTHER FINDINGS: None. IMPRESSION: No active disease.
--- NOTE | 2016-06-15 22:26 | CARD ---
APPROVED REPORT EKG Measurement Heart [id number] <Conclusion> Sinus tachycardia with occasional premature ventricular complexes Possible Left atrial enlargement Nonspecific ST abnormality Abnormal ECG
== END 2016-06-15 04:18 | disposition home or self-care (01) ==
LOC: C.ER 00:52
DX: R10.12 Left upper quadrant pain (principal); E11.9 Type 2 diabetes mellitus without complications
CPT/HCPCS: 71020; 74177; 80053; 81001; 83690; 84484; 85025; 85378; 93005; 99284; J7040; Q9966; Q9967